=== PATIENT | female | born 1965 | race Caucasian/White ===

== ENCOUNTER 2023-11-16 14:32 | Emergency (ER) | payer OTHER, SELFPAY ==
[2023-11-16 14:40] VITALS: BP 134/66; PULSE 83; RESP 16; TEMP 37.2; O2SAT 100
--- NOTE | 2023-11-16 14:45 | ED.FEMALEGU ---
HPI - Female Genitourinary General Chief complaint: Urogenital-Female Stated complaint: Urinary Problem Time Seen by Provider: 11/16/23 14:54 Source: patient and RN notes reviewed Mode of arrival: ambulatory Limitations: no limitations History of Present Illness HPI Narrative: 58-year-old female currently treated for C diff as an outpatient presented for complaint of burning with urination for about 2 days. Patient was prescribed Macrobid by PCP, but does not want to take it if she does not have to because of the C diff treatment. She was advised to have urine culture. Denies hematuria, nausea, vomiting, abdominal pain, flank pain, constipation, hematohezia, fevers or chills. Related Data Home Medications Medication Instructions Recorded Confirmed fidaxomicin 200 mg tablet (Dificid) 200 mg PO BID 11/16/23 11/16/23 Allergies Allergy/AdvReac Type Severity Reaction Status Date / Time No Known Allergies Allergy Verified 11/16/23 14:49 Review of Systems Review of Systems: CONSTITUTIONAL: Denies body aches, fever, chills, or sweats. CARDIOVASCULAR: Denies chest pain, palpitations, or edema. RESPIRATORY: Denies cough or dyspnea. GASTROINTESTINAL: Denies abdominal pain, nausea, vomiting, reports diarrhea. GENITOURINARY: Reports dysuria, denies frequency, urgency, hematuria, flank pain SKIN: Denies rash, itching, or wounds. MUSCULOSKELETAL: Denies back pain or myalgia. [facility] Past Medical History Medical History (Updated 11/16/23 @ 15:04 by Aylin Ramírez, CANDIS) C. difficile colitis Comments At time of signature, I have reviewed and agree with nursing past medical, surgical, social and family history unless otherwise noted. Please see nursing chart for further information. There is no relevant family history pertinent to the presenting complaint Exam Narrative: GENERAL: Well-appearing and in no acute distress. ENT: Mucous membranes pink and moist. NECK: Normal AROM. Supple. CHEST: No respiratory distress. Clear to auscultation. HEART: Regular rate and rhythm. ABDOMEN: Soft, nontender, nondistended, normal active bowel sounds. No CVA tenderness MUSCULOSKELETAL: No bony tenderness. SKIN: Warm, dry, no rash. NEURO: No focal deficits. Alert and oriented x3. Gait steady. PSYCH: Normal affect. Course Course Emergency Course: Patient is aware of diagnosis, understands and agrees to treatment plan. Anticipatory guidance given. Patient agrees to follow-up as directed and is aware of reasons to seek care at the emergency department. Portions of this record may have been created with voice recognition software Level of Care: Express Care Visit Vital Signs Vital signs: Vital Signs Temperature 99 F 11/16/23 14:40 Pulse Rate 83 11/16/23 14:40 Respiratory Rate 16 11/16/23 14:40 Blood Pressure 134/66 11/16/23 14:40 Pulse Oximetry 100 11/16/23 14:40 Oxygen Delivery Room Air 11/16/23 14:40 Temperature 99 F 11/16/23 14:40 Pulse Rate 83 11/16/23 14:40 Respiratory Rate 16 11/16/23 14:40 Blood Pressure 134/66 11/16/23 14:40 Pulse Oximetry 100 11/16/23 14:40 Oxygen Delivery Room Air 11/16/23 14:40 Reviewed MDM - Female Genitourinary MDM Narrative Medical decision making narrative: urine dip is unremarkable. Will send for culture. She has a prescription for Macrobid which she can start if the culture indicates sensitivity only. She is advised we will contact her with the results. Discussed physical exam findings. Advised supportive measures and signs/symptoms to go to the ER. Pt is appropriate for outpt treatment and f/u. Differential Diagnosis Differential diagnosis: Likely urinary tract infection, cystitis and other Discharge Plan Discharge Clinical Impression: Dysuria Patient Disposition: Home, Self-Care Condition: Stable Instructions: Antibiotic Form, Urinary Tract Infection in Women (ED) Additional Instructions: Your ur
[2023-11-16 15:09] LABS: EDUAAPPEAR Clear; EDUABILI Negative (Negative); EDUABLOOD Negative (Negative); EDUACOLOR1 Yellow; EDUAGLUCOSE Negative (Negative); EDUAKETONE Negative (Negative); EDUALEUKO Negative (Negative); EDUANITRATE Negative (Negative); EDUAPH 6.5; EDUAPROTEIN Negative (Negative); EDUAUROBILI 0.2
== END 2023-11-16 15:08 | disposition home or self-care (01) ==
PROVIDERS: Emergency Provider Nurse Practitioner Family
DX: R30.0 Dysuria (principal)
CPT/HCPCS: 81003; 87086; 87088; 99203; G0463